=== PATIENT | female | born 1945 | race Caucasian/White ===

== ENCOUNTER → 2023-02-06 | Outpatient (CLI) | payer MEDICARE ==
[~2023-02-06] MED LIST: NORCO 10-325 T1 EACH; TRAZADONE; Z.0.CELEXA40 MG PO; Z.0.DIAZEPAM5 MG PO; Z.0.LIPITOR20 MG PO; Z.0.PREMARIN0.45 MG PO; Z.0.PRILOSEC OTC20 M PO; Z.0.ULTRAM 50MG50 MG; Z.0.VICODIN 5-5001 E PO; [UNRECOGNIZED DRUG - CODE] PO
== END ==
LOC: RAD 13:13
PROVIDERS: ATTEND Internal Medicine
DX: J96.01 Acute respiratory failure with hypoxia (principal); M35.00 Sjogren syndrome, unspecified
CPT/HCPCS: 71046

== ENCOUNTER → 2023-08-23 | Outpatient (REF) | payer MEDICARE | LOC: MRI 09:45 | PROVIDERS: ATTEND Student in an Organized Health Care Education/Training Program | DX: M54.12 Radiculopathy, cervical region (principal); M54.6 Pain in thoracic spine | CPT/HCPCS: 72070; 72141; 72146 ==

== ENCOUNTER → 2025-04-21 | Outpatient (REF) | payer MEDICARE | LOC: RAD 12:11 | PROVIDERS: ATTEND Internal Medicine | DX: S90.32XA Contusion of left foot, initial encounter (principal); R23.3 Spontaneous ecchymoses ==